=== PATIENT | female | born 1985 | race African-American/Black ===

== ENCOUNTER 2017-03-14 20:18 | Emergency (ER) | payer MEDICARE ==
[~2017-03-14 20:18] MED LIST: MACROBID100 MG ORAL; ZOFRAN ODT4 MG ORAL
== END 2017-03-14 20:45 | disposition left against medical advice (07) ==
LOC: EMR 20:40
DX: R10.9 Unspecified abdominal pain (principal); Z53.21 Procedure and treatment not carried out due to patient leaving prior to being seen by health care provider
CPT/HCPCS: 99281